=== PATIENT | female | born 1970 | race Caucasian/White ===

== ENCOUNTER 2019-07-31 13:01 | Emergency (ER) | payer OTHER, SELFPAY ==
[2019-07-31 13:01] VITALS: BP 162/74; PULSE 82; RESP 24; TEMP 36.6; O2SAT 93; BMI 28.7
[2019-07-31 13:18] VITALS: BP 152/118; PULSE 86; RESP 17
--- NOTE | 2019-07-31 13:25 | CT_ITS ---
STUDY: CT ABDOMEN AND PELVIS WITH CONTRAST REASON FOR EXAM: Female, 48 years old. Mid abdominal pain with cramping and nausea/vomiting. RADIATION DOSAGE (If Supplied By Facility): CTDIvol = ( 13.61 ) mGy, DLP = ( 678.13 ) mGycm TECHNIQUE: Transaxial images were obtained from the dome of the diaphragm to the symphysis pubis without oral contrast. IV Isovue 300 100CC was administered. Sagittal and coronal images were reconstructed. Individualized dose optimization techniques were used for this CT. COMPARISON: None. FINDINGS: The visualized lung bases are unremarkable. The visualized portions of the heart are within normal limits. Normal liver. Normal gallbladder and extrahepatic biliary system. Normal spleen. Normal pancreas. Normal bilateral adrenal glands. Simple cyst of the right kidney. No solid renal masses or hydronephrosis. Stomach is not well distended. Fluid-filled distal ileum in the right lower abdomen with wall thickening and adjacent mesenteric induration/vascular congestion. Mild amount of free fluid in the dependent right hemipelvis. Normal colon. The appendix is visualized and appears normal. Normal abdominal aorta. Normal inferior vena cava. Normal retroperitoneum. Normal urinary bladder. Small uterine fibroid of the fundus is seen on image 91. Normal abdominal wall. Normal osseous structures. CT/Abdomen/Pelvis W IV Cont ONLY IMPRESSION: 1. Distal ileal wall thickening with perienteric stranding/free fluid and fluid filled bowel suggesting enteritis, infectious or inflammatory causes considered most likely. Bowel diameter measuring up to 2.5 cm. Electronically Signed: Jimbo España MD (Bro[place]) at 15:11 EDT , Service support ,
--- NOTE | 2019-07-31 13:26 | ED.VIS.GI ---
History of Present Illness Chief Complaint: Abd Pain Informant: Patient Limited: - - Acuity/condition - Abdominal Pain/Flank Pain Onset: Hours - 1.5 Timing: Continuous, Waxes and wanes Quality: - - Pain Location: - - Patient points to the periumbilical area/mid abdomen and bilaterally Current Severity: Severe Maximum Severity: Severe - Nausea/Vomiting/Emesis GI Symptom: Nausea, Vomiting - Diarrhea/Melena/Hematochezia GI Symptom: Negative for: Diarrhea, Melena, Hematochezia Associated Symptoms: Negative for: Dysuria, Frequency, Hematuria Narrative: Patient had a normal bowel movement this morning. She has vomited a couple times. She is having severe pain that she has never had before. She is hysterical, screaming in pain, limiting the history initially. Son is with her and confirms she has never been like this. She states she has had a in the past, but no other abdominal surgeries. She states that her back muscles feel sore but does not feel like this pain is radiating into her back. No urinary symptoms this morning. Past Medical History - Allergies and Home Meds Allergies/Adverse Reactions: Allergies Penicillins Allergy (Verified 07/31/19 13:02) Rash Primary Care Physician: Yas Lozano DO [Primary Care Provider] - Surgical History: - - , no other abdominal surgeries Lives: With Family Drugs: None Review of Systems All systems negative except as indicated - Limited but able to perform most as below General: Denies: Chills, Fever ENT: Denies: Rhinorrhea, Sore throat Cardiovascular: Denies: Chest pain, Palpitations Respiratory: Denies: Dyspnea, Cough, Dyspnea on exertion Gastrointestinal: Reports: Abdominal pain, Nausea, Vomiting. Denies: Diarrhea, Melena, Hematochezia Genitourinary: Denies: Dysuria, Hematuria, Frequency Musculoskeletal: Reports: Back pain. Denies: Neck pain, Extremity Pain Skin: Denies: Rash, Wounds Neurological: Denies: Headache, Weakness, Numbness Physical Exam Vital Signs/Narrative: Vital Signs Temp Pulse Resp BP Pulse Ox 07/31/19 13:18 86 17 152/118 H 07/31/19 13:01 97.9 F 82 24 H 162/74 H 93 Inital Vital Signs reviewed: Yes General: Well nourished, Well developed, Acute Distress Head: Normocephalic, Atraumatic Eyes: Perrl, EOMI ENT: Moist mucous membranes, No rhinorrhea Neck: Supple, Nontender Cardiovascular: Regular rate, Regular rhythm, No murmurs Respiratory: No distress, CTA bilaterally, Chest nontender Abdomen: Soft, Nontender, Nondistended, Hypoactive bowel sounds Back: Nontender, Normal Inspection. Negative for: CVA tenderness Extremities: Nontender, No edema Skin: Normal color, No rash, No Trauma Neurological: Alert, Oriented x3, Cranial nerves II-XII grossly intact, Normal Strength, Normal Sensation Psychological: Agitated Diagnostic/Tx/Re-eval Impressions Abdomen/Pelvis CT 07/31/19 13:25 IMPRESSION: 1. Distal ileal wall thickening with perienteric stranding/free fluid and fluid filled bowel suggesting enteritis, infectious or inflammatory causes considered most likely. Bowel diameter measuring up to 2.5 cm. Electronically Signed: Jimbo España MD ([place]) at 15:11 EDT , Service support , 07/31/19 13:25 Abdomen/Pelvis W IV Cont ONLY [CT] Stat Laboratory Results 07/31/19 07/31/19 07/31/19 13:23 13:23 13:23 WBC 9.8 RBC 4.44 Hgb 13.9 Hct 40.7 MCV 91.7 MCH 31.3 MCHC 34.2 RDW Std Deviation 40.1 RDW Coeff of Bello 11.9 Plt Count 272 MPV 9.7 Immature Gran % (Auto) 0.300 Neut % (Auto) 63.3 Lymph % (Auto) 26.4 [place] % (Auto) 7.6 Eos % (Auto) 1.7 Baso % (Auto) 0.7 Absolute Neuts (auto) 6.2 Absolute Lymphs (auto) 2.59 Nucleated RBC % 0 Sodium 140 Potassium 3.0 L Chloride 107 Carbon Dioxide 22.0 Anion Gap 11 BUN 15 Creatinine 0.92 Estim Creat Clear Calc 61.19 Est GFR (MDRD) Af Amer 84 Est GFR (MDRD) Non-Af 69 BUN/Creatinine Ratio 16.4 Glucose 140 H Lactic Acid Calcium 9.0 Total Bilirubin 0.40 AST 17 ALT 20 Alkaline Phosphatase 73 Total Protein 8.0 Albumin 4.0 Globulin 4.0 Albumin/Globulin Ratio 1.0 Lipase 146 Serum , Qual NEGATIVE Urine Color Urine Clarity Urine pH Ur Specific [place] Urine Protein Urine Glucose (UA) Urine Ketones Urine Occult Blood Urine Nitrite Urine Bilirubin Urine Urobilinogen Ur Leukocyte Esterase Urine RBC Urine WBC Ur Squamous Epith Cells Urine Bacteria Urine Mucus 07/31/19 07/31/19 13:33 14:06 WBC RBC Hgb Hct MCV MCH MCHC RDW Std Deviation RDW Coeff of Bello Plt Count MPV Immature Gran % (Auto) Neut % (Auto) Lymph % (Auto) [place] % (Auto) Eos % (Auto) Baso % (Auto) Absolute Neuts (auto) Absolute Lymphs (auto) Nucleated RBC % Sodium Potassium Chloride Carbon Dioxide Anion Gap BUN Creatinine Estim Creat Clear Calc Est GFR (MDRD) Af Amer Est GFR (MDRD) Non-Af BUN/Creatinine Ratio Glucose Lactic Acid 3.6 H Calcium Total Bilirubin AST ALT Alkaline Phosphatase Total Protein Albumin Globulin Albumin/Globulin Ratio Lipase Serum , Qual Urine Color Yellow Urine Clarity Cloudy Urine pH 8.0 Ur Specific [place] 1.010 Urine Protein 30 H Urine Glucose (UA) Normal Urine Ketones 150 H Urine Occult Blood 250 H Urine Nitrite Negative Urine Bilirubin Negative Urine Urobilinogen Normal Ur Leukocyte Esterase 25 H Urine RBC 50-100 SEEN Urine WBC 0 SEEN Ur Squamous Epith Cells 0-5 SEEN Urine Bacteria RARE Urine Mucus RARE - Medical Decision Making Further details obtained after the patient received morphine 10 mg and was able to converse easier without screaming: Patient needed to urinate after drinking a lot of fluids and she was holding it until she got to her destination in her car. She urinate and had some mild mid-abd discomfort afterwards, which worsened over about an hour until the point that it was severe; it was somewhat colicky. So far labs unremarkable, urinalysis does show some trace blood and we are awaiting CT, she was asking for more analgesics so Toradol given as kidney stone is in the differential, even though her pain is bilateral. Blood work unremarkable, urinalysis shows blood but the patient states she is currently finishing up her menstrual cycle. CT shows as above, area of wall thickening in the distal ileum along with some dilatation there focally and perienteric stranding with some free fluid. After Toradol, patient is feeling better still. She still has some residual soreness but nothing like what she did. She is conversing in a comfortable manner. Her pain was across the middle of her abdomen, and with the vomiting, which is nonspecific, the quality of the pain seemed more small bowel in context. There is no sign of any hydronephrosis or urolithiasis, even if she recently passed it she should still have signs of residual hydro-. Therefore I suspect the bowel findings on CT are probably related to her pain, however the reason for this is unknown and will need further work-up if persistent. I discussed with Dr. Zarate who reviewed her CT and the case with me over the phone, and agrees that outpatient follow-up would be reasonable with her, as long as the patient symptoms are controlled. At this time they are, we will monitor her a little longer in the ER and I will give her dicyclomine in addition to the medicine she had, and if she is comfortable going home we will prescribe her Percocet, dicyclomine, and Zofran to use as needed until she can follow-up after the weekend, we also discussed reasons to return. ED Disposition - Plan for ED Patient: Disposition: Home or Assisted Living Diagnosis: Diffuse abdominal pain Instructions: ABDOMINAL PAIN, Unknown Cause, (Female) Prescriptions: Dicyclomine HCl [Bentyl] 20 mg PO Q4H PRN #16 cap PRN Reason: abdominal pain Prescription Printed Oxycodone HCl/Acetaminophen [Percocet 5/325] 1 - 2 tab PO Q4H PRN PRN 3 Days #18 tab PRN Reason: Pain Prescription Printed Ondansetron [Zofran] 8 mg PO Q8H PRN PRN #12 tab PRN Reason: Nausea Prescription Printed Referrals: Yas Lozano DO [Primary Care Provider] - Mavis Zarate MD [STAFF PHYSICIAN] -
[2019-07-31] MEDS: Ondansetron 4 MG/2 ML Vial IV (13:30)
[2019-07-31] MEDS: 0.9% Normal Saline 1,000 ML 1000 ML IV (13:30)
[2019-07-31] MEDS: morphine 10 MG/ML Syringe IV (13:30)
[2019-07-31 13:43] LABS: Absolute Lymphocyte Count 2.59 X10^3/uL (0.83-4.51); Absolute Neutrophil Count 6.2 X10^3/uL (2.0-7.7); Basophil# 0.07 X10^3/uL; Basophil% 0.7 % (0-1); Eosinophil# 0.17 X10^3/uL; Eosinophils% 1.7 % (0-5); Hematocrit 40.7 % (37-47); Hemoglobin 13.9 g/dL (12.0-15.0); Lymphocyte # 2.59 X10^3/ul (4.0); Lymphocyte % 26.4 % (19-41); Mean Corp Hgb Conc 34.2 g/dL (32-36); Mean Corpuscular Hgb 31.3 pg (27.0-32.0); Mean Corpuscular Volume 91.7 fL (81-99); Mean Platelet Vol. 9.7 fl (6.2-12.0); Monocyte# 0.75 X10^3/uL; Monocyte% 7.6 % (0-10); NRBC Flagged by Analyzer 0 % (0-5); Neutrophil % 63.3 % (47-70); Platelet Count 272 K/mm3 (150-450); RBC Distribution Width CV 11.9 % (11.6-14.6); RBC Distribution Width SD 40.1 fl (35.1-43.9); Red Blood Count 4.44 M/mm3 (4.2-5.4); White Blood Count 9.8 K/mm3 (4.4-11.0)
[2019-07-31 13:50] LABS: Internal QC Validated? YES +Cl - CLEAR BKGD; Pregnancy, Serum, hCG Quali. NEGATIVE Negative
[2019-07-31 13:58] LABS: AST(SGOT) 17 U/L (15-37); Alanine Aminotransfer ALT/SGPT 20 U/L (13-56); Alkaline Phosphatase 73 U/L (45-117); Anion Gap 11 (5-15); BUN 15 mg/dL (7-18); BUN/Creat Ratio 16.4 RATIO (10-20); Chloride 107 mmol/L (98-107); Creatinine, Serum 0.92 mg/dL (0.55-1.02); EST Glomerular Filtration Rate 69 mL/min (>60); Est Glom Filt Rate - Afr Amer 84 mL/min (>60); Estimated Creatinine Clearance 61.19 ml/min; Glucose 140 mg/dL (74-106); Lipase 146 U/L (73-393); Sodium Level 140 mmol/L (136-145)
[2019-07-31 14:18] LABS: White Blood Cells 0 SEEN /hpf (0-5)
--- NOTE | 2019-07-31 14:18 | ED.RN ---
LAB WITH CRITICAL VALUE OF 3.[address] VIDAL NOTIFIED AT THIS TIME.
[2019-07-31 14:19] LABS: Lactic Acid 3.6 mmol/L (0.4-2.0)
[2019-07-31 14:20] LABS: Color, Urine Yellow (Yellow); Glucose, Dipstick Normal (Normal); Leukocyte Esterase-Dipstick 25 /ul (Negative); Nitrite-Dipstick Negative (Negative); Occult Blood-Urine 250 /ul (Negative); Protein-Dipstick 30 mg/dl (Negative); Urine Bilirubin Dipstick Negative (Negative); Urine Clarity Cloudy (Clear); Urine Urobilinogen Normal (Normal)
[2019-07-31 14:27] LABS: Ketone-Dipstick 150 mg/dl (Negative)
[2019-07-31 14:29] LABS: Bacteria RARE /hpf (None Seen); Mucous, Urine RARE /hpf (<or=2+); Red Blood Cells-Urine 50-100 SEEN /hpf (0-5); Squamous Epithelial Cells - UA 0-5 SEEN /hpf (5-10)
--- NOTE | 2019-07-31 14:29 | ED.RN ---
LAB WITH CRITICAL OF URINE KETONES OF 150. DR VIDAL NOTIFIED AT THIS TIME.
[2019-07-31] MEDS: Ketorolac 30 MG/ML Syringe IV (14:42)
[2019-07-31 16:03] VITALS: BP 136/85; RESP 18; O2SAT 97
[2019-07-31] MEDS: Dicyclomine 10 MG Capsule 20 MG PO (16:27)
[2019-07-31 17:54] LABS: Reflex Lactate? Y
[2019-07-31] MEDS: Morphine 4 MG/ML Syringe IV (18:31)
[2019-07-31 18:33] VITALS: BP 121/71; PULSE 71; RESP 16; O2SAT 98
[2019-07-31 19:33] VITALS: BP 121/71; RESP 18
== END 2019-07-31 19:34 | disposition home or self-care (01) ==
PROVIDERS: Emergency Provider Emergency Medicine; Family Provider Internal Medicine; PCP Internal Medicine
DX: R10.84 Generalized abdominal pain (principal)
CPT/HCPCS: 74177; 80053; 81001; 83605; 83690; 84703; 85025; 96361; 96374; 96375; 96376; 99285; J7030; Q9967; A4216; J2405

== ENCOUNTER 2019-08-08 12:32 | Inpatient (IN) | payer OTHER, SELFPAY ==
[2019-08-08] VITALS (14 sets, daily range): BP systolic 112–146; BP diastolic 2–98; PULSE 16–119; RESP 14–24; TEMP 36.3–37.6; O2SAT 93–98; BMI 28.8; BMI 28.9
--- NOTE | 2019-08-08 | IMM_PTH ---
PATIENT: PEPE MUNIZ LOC: [facility]3 U#:[id number] AGE/SX: 48/F ROOM: MS306 RE08/08/[address]: Dr. Mavis Zarate MD : 1970 BED: 1 DIS: 08/12/2019 SPEC #: [id number] RECD: 08/10/19 11:25 STATUS: AUDIE REQ #: [id number] HARRIS: 08/08/19 00:[address]: Mavis Zarate DEPT: IMMUNOHISTOCHEMISTRY RECD BY: Tamar eTrry ENTERED: 08/10/19 11:27 SP TYPE: IMMUNO OTHR DR: Dr. Yas Lozano DO Tissues: Lymph node of abdomen, NOS Procedures: BCL-2 (add) CD15 (add) CD20 (add) CD30 (add) CD45 (add) CD5 (add) CD79A (add) CD3 (initial) PHYSICIAN & INSTITUTION [place] [id number] SPECIMEN INFORMATION: Tissue Source: Mesenteric lymph node Clinical Info: Abdominal pain, bloating, constipation Specimen Number: [id number] CPT code: 56241, 88520 x7 METHODOLOGY: Deparaffinized sections of prefer/formalin-fixed tissue or PAP/DQ stained slides are incubated with monoclonal/polyclonal antibodies/oligonucleotide probes. Localization is made via biotin free immunoperoxidase method. Appropriate controls are performed and reacted as expected. Results on target cell population are indicated in the following table: RESULTS: ANTIBODY / CLONE RESULT CD3 (PS1) negative CD5 (SP10) negative CD15 (MMA) negative CD20 (L26) positive, subset, dim CD30 (Cesar-H2) positive CD45 (RP2/18) negative CD79a (11E3) positive, subset, dim BCL-2 (bcl-2/100/D5) negative These tests were developed and their performance characteristics determined by [facility]. They may not have been cleared or approved by the U.S. Food and Drug Administration. The FDA has determined that such clearance or approval is not necessary. The above immunohistochemical/dualISH markers are ordered and reviewed by the Pathologist. INTERPRETATION: Mesenteric lymph node, biopsy: Classical Hodgkin lymphoma, mixed cellularity type. JENISE:bright 08/16/19 The specimen is sent to [facility] for expert opinion and reviewed by Dr. Harding and above diagnosis is rendered. The complete consultation report can be viewed in patient's EMR. Case has been reviewed in consultation with Dr. Ibrahim who concurs with the above diagnosis. 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 Ward's request, reviewed by Dr.?Sarah Christianne CRUZ and the above diagnosis was rendered. In an addendum from [employer], per phone conversation with client, the case was sent to [facility] for consultation with a diagnosis of immunoblast proliferation, not lymphoma. Due to the discrepancy, it may be helpful to have excisional biopsy of lymph node for more definitive diagnosis if clinically indicated. Please see the complete report in the patient's EMR
--- NOTE | 2019-08-08 13:13 | CT_ITS ---
STUDY: CT ABDOMEN AND PELVIS WITH CONTRAST REASON FOR EXAM: Female, 48 years old. Abdominal pain with nausea and vomiting, history of bowel obstruction RADIATION DOSAGE (If Supplied By Facility): CTDIvol = ( 14.15 ) mGy, DLP = ( 758.13 ) mGycm TECHNIQUE: Transaxial images were obtained from the dome of the diaphragm to the symphysis pubis with oral contrast. IV/Oral Isovue 300 100mL was administered. Sagittal and coronal images were reconstructed. Individualized dose optimization techniques were used for this CT. COMPARISON: 07/31/2019 FINDINGS: The visualized lung bases are unremarkable. The visualized portions of the heart are within normal limits. Normal liver. Normal gallbladder and extrahepatic biliary system. Normal spleen. Normal pancreas. Normal bilateral adrenal glands. There is a simple cyst of the right kidney. Normal left kidney. Normal visualized stomach. There are dilated loops of the small intestine with a non-distended colon consistent with a small bowel obstruction. Diameter of small bowel measures up to 4.2 cm (diameter previously measured less than 3 cm). Transition point in the right lower quadrant best seen on coronal image 59. Nondistended colon. The appendix is visualized and appears normal. Normal abdominal aorta. Normal inferior vena cava. Normal retroperitoneum. Normal urinary bladder. Small uterine fibroid is stable. Normal abdominal wall. Normal osseous structures. CT/Abdomen/Pelvis WITH Contrast IMPRESSION: Small bowel obstruction without evidence of pneumoperitoneum. Transition point in the right lower quadrant, distal ileum. Electronically Signed: Jimbo España MD (Brooks) at 15:45 EST , Service support ,
--- NOTE | 2019-08-08 13:15 | ED.VIS.GEN ---
History of Present Illness Chief Complaint: Abd Pain Informant: Patient Onset: Days - 8 Context: Gradual Onset Timing: Continuous Current Severity: Moderate Maximum Severity: Severe Narrative: Is a 48-year-old female with no past medical history presenting with continued abdominal pain, distention, nausea and vomiting. Patient states she was seen in the ER a little over 1 week ago. At that time she was having severe abdominal pain. She required multiple doses of IV morphine for pain control. She was CT which showed a possible partial small bowel obstruction. Patient followed up with Dr. Zarate earlier this week and wanted to continue symptomatic treatment including pain control nausea control. Plan was to repeat a CT tomorrow if patient continued to have symptoms. Patient states she cannot keep any medication down. She cannot keep any liquids down. He states she has not really eaten anything since this all started 8 days ago. She is drinking minimal water. She notes yesterday she had vomit that looked like espresso but states she did not drink anything dark. Today she threw up but it was clear. She still feels very distended and bloated. She has had 2 small bowel movements that have been mostly water. She is been taking enemas at home with no significant bowel movement. She has a history of but no other abdominal surgeries. She denies any change in her symptoms or new symptoms. She denies any other complaints at this time. Past Medical History - Allergies and Home Meds Allergies/Adverse Reactions: Allergies Penicillins Allergy (Verified 07/31/19 13:02) Rash Past Medical History: None Surgical History: - - , no other abdominal surgeries Lives: With Family Smoking Status: Never smoker Review of Systems All systems negative except as indicated Gastrointestinal: Reports: Abdominal pain, Nausea, Vomiting, Constipation Physical Exam Vital Signs/Narrative: Vital Signs Temp Pulse Resp BP Pulse Ox 08/08/19 12:33 98.3 F 49 L 16 131/2 H 98 Inital Vital Signs reviewed: Yes General: Well nourished, Well developed, No Acute Distress Head: Normocephalic, Atraumatic Eyes: Perrl, EOMI ENT: Moist mucous membranes, No rhinorrhea Neck: Supple, Nontender Cardiovascular: Regular rate, Regular rhythm, No murmurs Respiratory: No distress, CTA bilaterally, Chest nontender Abdomen: Soft, Nondistended, Normal bowel sounds, Tender - Diffuse, Hyperactive bowel sounds, - - Mildly distended abdomen, no fluid wave. Negative for: No masses, Guarding, Rebound tenderness Back: Nontender, Normal Inspection. Negative for: CVA tenderness Extremities: Nontender, No edema Skin: Normal color, No rash Neurological: Alert, Oriented x3, Cranial nerves II-XII grossly intact, Normal Strength, Normal Sensation Psychological: Normal affect, Normal Mood Diagnostic/Tx/Re-eval Clinical Impression(s) from Imaging Studies Abdomen/Pelvis CT 08/08/19 13:13 IMPRESSION: Small bowel obstruction without evidence of pneumoperitoneum. Transition point in the right lower quadrant, distal ileum. Electronically Signed: Jimbo España MD (Brooks) at 15:45 EST , Service support , Laboratory Data 08/08/19 08/08/19 08/08/19 12:55 12:55 12:55 WBC Cancelled 9.1 Corrected WBC Cancelled RBC Cancelled 4.41 Hgb Cancelled 13.7 Hct Cancelled 40.8 MCV Cancelled 92.5 MCH Cancelled 31.1 MCHC Cancelled 33.6 RDW Std Deviation Cancelled 40.5 RDW Coeff of Bello Cancelled 11.9 Plt Count Cancelled 358 MPV Cancelled 9.5 Immature Gran % (Auto) Cancelled Neut % (Auto) Cancelled Not Reportable Lymph % (Auto) Cancelled [place] % (Auto) Cancelled Eos % (Auto) Cancelled Baso % (Auto) Cancelled Absolute Neuts (auto) Cancelled 6.3 Absolute Lymphs (auto) Cancelled 1.64 Total Counted Cancelled 100 Neutrophils % (Manual) Cancelled 61 Band Neutrophils % Cancelled 8 H Lymphocytes % (Manual) Cancelled 18 L Monocytes % (Manual) Cancelled 9 Eosinophils % (Manual) Cancelled 1 Basophils % (Manual) Cancelled Metamyelocytes % Cancelled Myelocytes % Cancelled 3 H Promyelocytes % Cancelled Blast Cells % Cancelled Plasma Cell % (Manual) Cancelled Other Cells % Cancelled Nucleated RBC % Cancelled 0 Nucleated RBCs/100 WBC Cancelled Differential Comment Cancelled Diff Path Review Cancelled May foll Hypersegmented Neuts Cancelled Atypical Lymphocytes Cancelled Reactive Lymphocytes Cancelled Smudge Cells Cancelled Toxic Granulation Cancelled Toxic Vacuolation Cancelled Dohle Bodies Cancelled Og Rods Cancelled Platelet Estimate Cancelled ADEQUATE Plt Morphology Comment Cancelled RBC Morphology Cancelled NORM C+C Polychromasia Cancelled Hypochromasia Cancelled Poikilocytosis Cancelled Basophilic Stippling Cancelled Anisocytosis Cancelled Microcytosis Cancelled Macrocytosis Cancelled Spherocytes Cancelled Sickle Cells Cancelled Target Cells Cancelled Tear Drop Cells Cancelled Ovalocytes Cancelled Stomatocytes Cancelled [place] Bodies Cancelled Hope Cells Cancelled Bite Cells Cancelled Crenated Cell Cancelled Acanthocytes (Spur) Cancelled Rouleaux Cancelled Schistocytes Cancelled Sodium 138 Potassium 2.9 L Chloride 99 Carbon Dioxide 26.0 Anion Gap 13 BUN 22 H Creatinine 0.70 Estim Creat Clear Calc 80.42 Est GFR (MDRD) Af Amer 113 Est GFR (MDRD) Non-Af 94 BUN/Creatinine Ratio 31.2 H Glucose 109 H Lactic Acid Calcium 8.6 Total Bilirubin 0.40 Direct Bilirubin 0.12 AST 15 ALT 22 Alkaline Phosphatase 73 Total Protein 7.7 Albumin 3.1 L Globulin 4.6 H Lipase 171 Urine Color Urine Clarity Urine pH Ur Specific [place] Urine Protein Urine Glucose (UA) Urine Ketones Urine Occult Blood Urine Nitrite Urine Bilirubin Urine Urobilinogen Ur Leukocyte Esterase Urine RBC Urine WBC Ur Squamous Epith Cells Urine Bacteria Urine Mucus Urine Test 08/08/19 08/08/19 08/08/19 13:35 13:35 13:35 WBC Corrected WBC RBC Hgb Hct MCV MCH MCHC RDW Std Deviation RDW Coeff of Bello Plt Count MPV Immature Gran % (Auto) Neut % (Auto) Lymph % (Auto) [place] % (Auto) Eos % (Auto) Baso % (Auto) Absolute Neuts (auto) Absolute Lymphs (auto) Total Counted Neutrophils % (Manual) Band Neutrophils % Lymphocytes % (Manual) Monocytes % (Manual) Eosinophils % (Manual) Basophils % (Manual) Metamyelocytes % Myelocytes % Promyelocytes % Blast Cells % Plasma Cell % (Manual) Other Cells % Nucleated RBC % Nucleated RBCs/100 WBC Differential Comment Diff Path Review Hypersegmented Neuts Atypical Lymphocytes Reactive Lymphocytes Smudge Cells Toxic Granulation Toxic Vacuolation Dohle Bodies Og Rods Platelet Estimate Plt Morphology Comment RBC Morphology Polychromasia Hypochromasia Poikilocytosis Basophilic Stippling Anisocytosis Microcytosis Macrocytosis Spherocytes Sickle Cells Target Cells Tear Drop Cells Ovalocytes Stomatocytes [place] Bodies Aden Cells Bite Cells Crenated Cell Acanthocytes (Spur) Rouleaux Schistocytes Sodium Potassium Chloride Carbon Dioxide Anion Gap BUN Creatinine Estim Creat Clear Calc Est GFR (MDRD) Af Amer Est GFR (MDRD) Non-Af BUN/Creatinine Ratio Glucose Lactic Acid 1.1 Calcium Total Bilirubin Direct Bilirubin AST ALT Alkaline Phosphatase Total Protein Albumin Globulin Lipase Urine Color Yellow Urine Clarity Clear Urine pH 6.0 Ur Specific [place] 1.020 Urine Protein 100 H Urine Glucose (UA) Normal Urine Ketones 150 H Urine Occult Blood 250 H Urine Nitrite Negative Urine Bilirubin 1 H Urine Urobilinogen 1 H Ur Leukocyte Esterase 25 H Urine RBC 10-25 SEEN Urine WBC 0 SEEN Ur Squamous Epith Cells 0 SEEN Urine Bacteria 0 SEEN Urine Mucus 0 SEEN Urine Test Negative - Medical Decision Making Patient is evaluated for continued nausea, vomiting and inability to take p.o. She was diagnosed with a partial small bowel obstruction versus ileus last week but her symptoms have persisted. She is been following with Dr. Zarate outpatient. Patient clinically appears dehydrated. She is given IV fluids. CT with IV and p.o. contrast is obtained which does show an acute small bowel obstruction with transition point. Patient's lactate is normal. She is hypokalemic and potassium replacement IV is given. Attempt is made for NG tube in the ED however it is inadvertently placed in the long and then removed. Decision is made by surgeon to take her to the OR and NG tube will be placed at that time. Patient is agreeable with this plan. She is hemodynamically stable in the emergency room. ED Disposition - Plan for ED Patient: Disposition: Acute Care Hospital [facility] Diagnosis: SBO (small bowel obstruction), Hypokalemia
[2019-08-08] MEDS: Morphine 4 MG/ML Syringe IV ×2 (13:29→21:56)
[2019-08-08] MEDS: 0.9% Normal Saline 1,000 ML 1000 ML IV (13:29)
[2019-08-08] MEDS: Ondansetron 4 MG/2 ML Vial IV (13:29)
[2019-08-08 13:47] LABS: Bacteria 0 SEEN /hpf (None Seen); Mucous, Urine 0 SEEN /hpf (<or=2+); Squamous Epithelial Cells - UA 0 SEEN /hpf (5-10); White Blood Cells 0 SEEN /hpf (0-5)
[2019-08-08 13:51] LABS: Color, Urine Yellow (Yellow); Glucose, Dipstick Normal (Normal); Leukocyte Esterase-Dipstick 25 /ul (Negative); Nitrite-Dipstick Negative (Negative); Occult Blood-Urine 250 /ul (Negative); Protein-Dipstick 100 mg/dl (Negative); Urine Bilirubin Dipstick 1 mg/dL (Negative); Urine Clarity Clear (Clear); Urine Urobilinogen 1 mg/dl (Normal)
[2019-08-08 13:52] LABS: Internal QC Validated? YES +Cl - CLEAR BKGD; Ketone-Dipstick 150 mg/dl (Negative); Pregnancy, Urine Negative Negative
[2019-08-08 14:01] LABS: AST(SGOT) 15 U/L (15-37); Alanine Aminotransfer ALT/SGPT 22 U/L (13-56); Albumin, Serum 3.1 g/dL (3.2-5.0); Alkaline Phosphatase 73 U/L (45-117); Anion Gap 13 (5-15); BUN 22 mg/dL (7-18); BUN/Creat Ratio 31.2 RATIO (10-20); Bilirubin, Direct 0.12 mg/dL (0.00-0.30); Calcium,Total 8.6 mg/dL (8.5-10.1); Chloride 99 mmol/L (98-107); EST Glomerular Filtration Rate 94 mL/min (>60); Est Glom Filt Rate - Afr Amer 113 mL/min (>60); Estimated Creatinine Clearance 80.42 ml/min; Globulin 4.6 g/dL (2.2-4.2); Glucose 109 mg/dL (74-106); Lipase 171 U/L (73-393); Potassium 2.9 mmol/L (3.5-5.1); Protein, Total 7.7 g/dL (6.4-8.2); Sodium Level 138 mmol/L (136-145)
[2019-08-08 14:06] LABS: Red Blood Cells-Urine 10-25 SEEN /hpf (0-5)
[2019-08-08 14:13] LABS: Differential Indicated MANUAL DIFF; Hematocrit 40.8 % (37-47); Hemoglobin 13.7 g/dL (12.0-15.0); Mean Corp Hgb Conc 33.6 g/dL (32-36); Mean Corpuscular Hgb 31.1 pg (27.0-32.0); Mean Corpuscular Volume 92.5 fL (81-99); Mean Platelet Vol. 9.5 fl (6.2-12.0); POSITIVE MORPHOLOGY YES; Platelet Count 358 K/mm3 (150-450); RBC Distribution Width CV 11.9 % (11.6-14.6); RBC Distribution Width SD 40.5 fl (35.1-43.9); Red Blood Count 4.41 M/mm3 (4.2-5.4); White Blood Count 9.1 K/mm3 (4.4-11.0)
[2019-08-08 14:15] LABS: Neutrophil-Band 8 % (0-5); Neutrophil-Segmented 61 % (47-70); Total Cells Counted 100 (MANUAL DIFF)
[2019-08-08 14:16] LABS: Eosinophil 1 % (0-5); Lymphocyte 18 % (19-41); Monocyte 9 % (0-10); Myelocyte 3 (0-0); Platelet Estimate ADEQUATE (ADEQ); Red Cell Morphology NORM C+C NORMAL (NORM C&C)
[2019-08-08 14:17] LABS: Lactic Acid 1.1 mmol/L (0.4-2.0)
[2019-08-08 14:17] LABS: Absolute Lymphocyte Count 1.64 X10^3/uL (0.83-4.51); Absolute Neutrophil Count 6.3 X10^3/uL (2.0-7.7)
[2019-08-08 14:18] LABS: NRBC Flagged by Analyzer 0 % (0-5)
--- NOTE | 2019-08-08 15:04 | HP.PCM_ITS ---
History and Physical Date of Admission: 08/08/19 Mercedes Muniz 1970 ? ? REFERRING PHYSICIAN: [facility], [place] [facility] ? CHIEF COMPLAINT: Consult (Consult Abd pain) ? HPI: The patient is a 48 year old female presents with complaint of abdominal pain The following is from a previous note when I had seen patient last week: She states that it began on Friday morning - patient states that she had to urinate but had to hold it, when she was finally able to do so, she had difficulty initiating the stream, then after voiding, then she felt crampy lower abdominal pain. She had accompanying symptoms of nausea and emesis. She also felt bloated. The pain became so severe that she presented to [facility] ED on 07/31/19. She states that she was screaming in pain and that it is completely out of character for her. She had essentially normal labs - normal WBC and Hct and LFTs, and afebrile and hemodynamically stable. CT scan obtained - fluid filled distal ileum in the right lower abdomen with wall thickening and adjacent mesenteric induration/vascular congestion. Mild amount of free fluid in the dependent right hemipelvis...appendix...normal She received morphine IV in ED and this greatly improved her pain, she was able to be discharged to home on bentyl, ibuprofen, and oxycodone. She has been taking the oxycodone. She was still in pain at home, sometimes lying in bed all day, she states that she is normally very active. Lying on her left side helps. She did vomit yesterday, but none today. Her last bowel movement was on Friday prior to presentation to ED. She has continuous pain, but it waxes and wanes and is not as severe as when she went to ED. She states that she feels bloated. Denies inflammatory bowel disease such as ulcerative colitis or Crohn's disease in family. Denies colon cancer in family. She states that she can't eat, she has been trying to drink water. Her only previous abdominal surgery was a csection, but she states that she had to have her bowels eviscerated due to complications with . She presents again to [facility] ED. Worsening symptoms - intractable nausea/emesis. WBC was normal. Pain is severe, barely controlled with morphine 4 mg. Lactic acid is normal. Patient is afebrile. CT scan reveals bowel obstruction. ? PAST MEDICAL HISTORY ? Skin cancer ? ? basal cell ? PAST SURGICAL HISTORY ? DELIVERY ONLY ? ? ? x2, tubal ligation at time of ? KNEE SURGERY HX Left 2008 ? TUBAL LIGATION, ? Current Outpatient Medications: oxyCODONE-acetaminophen (PERCOCET) 5-325 mg tablet Take 1 tablet by mouth every 8 hours as needed. dicyclomine (BENTYL) 10 mg capsule Take 10 mg by mouth before meals and at bedtime. ondansetron orally disintegrating (ZOFRAN ODT) 4 mg disintegrating tablet Take 4 mg by mouth every 8 hours as needed. MULTIVIT &MINERALS/FERROUS FUM (MULTI VITAMIN ORAL) Take by mouth. CALCIUM CARBONATE/VITAMIN D3 (CALCIUM + D ORAL) Take by mouth. B COMPLEX WITH VITAMIN C (VITAMIN B COMPLEX-C ORAL) Take by mouth. DOCOSAHEXANOIC ACID/EPA (FISH OIL ORAL) Take by mouth. ondansetron (ZOFRAN) 4 mg tablet Take 1 tablet by mouth every 8 hours as needed for up to 7 days. alpha tocopheryl acetate 400 unit capsule Take 400 Units by mouth once daily. FERROUS SULFATE, DRIED (IRON, DRIED, ORAL) Take by mouth. ? ? ALLERGIES: Penicillins ? PERSONAL HISTORY: Social History Socioeconomic History Marital status: Spouse name: Abhay Number of children: 2 Years of education: Not on file Highest education level: Not on file Occupational History Employer: [employer] Social Needs Financial resource strain: Not on file Food insecurity: Worry: Not on file Inability: Not on file Transportation needs: Medical: Not on file Non-medical: Not on file Tobacco Use Smoking status: Never Smoker Smokeless tobacco: Never Used Substance and Sexual Activity Alcohol use: No Drug use: No Sexual activity: Never Lifestyle Physical activity: Days per week: Not on file Minutes per session: Not on file Stress: Not on file Relationships Social connections: Talks on phone: Not on file Gets together: Not on file Attends baptism service: Not on file Active member of club or organization: Not on file Attends meetings of clubs or organizations: Not on file Relationship status: Not on file Intimate partner violence: Fear of current or ex partner: Not on file Emotionally abused: Not on file Physically abused: Not on file Forced sexual activity: Not on file Other Topics Concerns: Not on file Social History Narrative Not on file ? FAMILY HISTORY ? Breast Cancer Mother ? ? Diabetes Mother ? ? other (Endometrial cancer) Maternal Aunt ? ? Cancer Maternal Aunt ? ? Cancer Paternal Aunt ? ? Diabetes Maternal Aunt ? ? Diabetes Paternal Aunt ? ? ? REVIEW OF SYSTEMS: General: The patient notes fatigue, denies weight loss, denies weight gain, denies feeling hot, and denies feelings of cold. Eyes: The patient denies glaucoma, denies eye injury/surgery, wears glasses or contacts. Ear/Nose/Throat: The patient denies allergies, denies hayfever, denies ear infections, and denies bloody noses. Cardiovascular: The patient denies chest pain, denies heart disease, denies high blood pressure,denies cardiac stent, denies prior heart attack, denies irregular heart beat, denies high cholesterol, denies poor circulation, denies heart failure, other cardiac issues, denies claudication, denies cold feet, denies peripheral arterial stent. Respiratory: The patient denies tuberculosis, denies pneumonia, denies frequent cough, denies pulmonary embolism, denies shortness of breath, and denies coughing up blood. Gastrointestinal: The patient denies difficulty swallowing, denies acid reflux, denies ulcers, denies vomiting, denies jaundice/hepatitis, denies gallbladder problems, denies black or tarry stools, denies hemorrhoids, denies bleeding from rectum, denies diverticulitis, denies constipation, denies diarrhea, denies loss of stool control, and denies hernias. Kidney/Bladder: The patient NOTES kidney stones, denies urine infections, and denies bloody urine. Skin: The patient denies a history of skin cancer, denies bleeding/changing moles, and denies a history of skin rash. Neurologic: The patient denies a history of epilepsy/convulsions, denies headaches, denies head/spinal injuries, and denies stroke/TIA. Psychiatric: The patient denies psychiatric medications, denies depression, and denies voices, denies substance abuse. Endocrine: The patient denies thyroid disorders, denies diabetes, and denies hormonal problems. Hematologic: The patient denies a history of bruising, denies bleeding, and denies anemia, denies blood clots. Infections: The patient denies a history of measles and mumps, denies rheumatic fever, and denies sexually transmitted diseases. Musculoskeletal: The patient denies back pain/injury, denies back problems, denies sciatica, NOTES knee/foot trouble, denies arthritis, or denies gout. ? PHYSICAL EXAMINATION: General: The patient is 48 year old female, well nourished, well hydrated in no acute distress. The patient is oriented to time, place, and person. VITALS: Blood pressure 118/60, pulse 91, temperature 36.8 ?C (98.3 ?F), height 160 cm (5' 3), weight 73.8 kg (162 lb 9.6 oz), SpO2 100 %. Body mass index is 28.8 kg/m?. Head ? Normocephalic. EOM intact with sclera clear and no icterus noted. Wearing glasses. Mouth with mucus membranes moist. Neck - supple with no jugular venous distention noted. Trachea is midline. No masses noted. Lungs ? clear to auscultation. Normal breath sounds. No rales/rhonchi/wheezing noted. No labored breathing noted, such as retractions. No cough heard. Heart ? normal S1 and S2 auscultated. No rubs/clicks/murmurs noted. Regular rate. Abdomen ? soft with generalized tenderness but no peritoneal signs. Normal bowel sounds. No distention noted. Extremities ? no calf tenderness noted. No pitting edema noted. Skin ? normal skin integrity. Neurological ? gait normal, no focal deficits noted. Psych ? calm and appropriatete LABORATORY VALUES: As Noted RADIOLOGIC STUDIES: As Noted ? ? IMPRESSION: generalized abdominal pain, abdominal bloating, constipation - CT scan findings of SBO ? PLAN: I have discussed the above with the patient Will proceed to OR for exploratory laparotomy and lysis of adhesions, possible bowel resection. Nurses in ED could not get NG tube down, therefore patient cannot be decompressed at this time. She will be admitted after surgery to [facility]. I have counseled the patient as to the risks of the procedure, including but not limited to: infection, bleeding, injury to any blood vessels/nerves, scar tissue, injury to any intrabdominal organs, injury to kidney/ureters, injury to bowel/bladder, intraabdominal abscess/bleeding, incisional hernia, wound infections, complications of anesthesia, etc. the patient understands. I have answered all questions to the patient?s satisfaction and the patient has no further questions.
[2019-08-08] MEDS: Potassium Chloride 10mEq/100mL 10 MEQ/100 ML IV.SOLN. 100 MEQ IV BOLUS ×4 (15:42→20:11)
[2019-08-08] MEDS: Lidocaine 4% 5 ML Ampul 2 ML INHALATION (16:09)
--- NOTE | 2019-08-08 16:30 | RAD_ITS ---
STUDY: X-RAY - ABDOMEN/PELVIS REASON FOR EXAM: Female, 48 years old. NG tube placement, removed following x-ray TECHNIQUE: Single AP view of the abdomen / pelvis. COMPARISON: None. FINDINGS: Enteric tube is seen coiled overlying the upper thorax. Tip of the tube projects over the left mainstem bronchus. Gaseous dilation of small bowel noted. RAD/Abdomen Single View (Portable) IMPRESSION: Enteric tube likely within left mainstem bronchus. Removed by the clinical service immediately following x-ray according to technologist notes. Electronically Signed: Jimbo España MD (Brooks) at 16:43 EST , Service support ,
--- NOTE | 2019-08-08 16:41 | ED.RN ---
attempted to place ng in r nares, pt did not tolerate well. xray to confirm placement, placement was not in stomach. tube removed.
--- NOTE | 2019-08-08 17:30 | LYMN_PTH ---
PATIENT: PEPE MUNIZ LOC: MS3 U#:[id number] AGE/SX: 48/F ROOM: MS306 RE08/08/[address]: Dr. Mavis Zarate MD : 1970 BED: 1 DIS: 08/12/2019 SPEC #: [id number] RECD: 08/09/19 07:25 STATUS: AUDIE REGabbie #: [id number] HARRIS: 08/08/19 17:[address]: Mavis Zarate DEPT: SURGICAL PATHOLOGY RECD BY: Gladys Martinez ENTERED: 08/09/19 08:47 SP TYPE: LYMPH NODE OTHR DR: Dr. 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 See microscopic description and comment. SJ:rg 08/16/19 COMMENT This case is sent to [facility] for expert opinion and reviewed by Dr. Harding and above diagnosis is rendered. The complete consultation report can be viewed in patient's EMR. Immunohistochemistry ([id number]) and additional immunohistochemical stains performed at [facility] supports the above diagnosis. Case has been reviewed in consultation with Dr. Ibrahim who concurs with the above diagnosis. IDC:AM MICROSCOPIC DESCRIPTION Slides are reviewed. The specimen consists of lymph node tissue. The jacquie architecture is effaced by atypical lymphoid infiltrate, composed of Hodgkin cells/Leeroy Arabella (RS) cells in a background of mixed inflammatory cells. IHCs reveal the RS cells are positive for LOPEZ-1, Oct-2 (dim), CD30, PAX-5 (dim), CD20 (subset), MUM1, negative for CD45. GROSS DESCRIPTION Received in fixative is one container labeled with the patient's name and designated mesenteric lymph node. The specimen consists of multiple irregular fragments of beltre-pink soft tissue that in aggregate measure 1 x 0.5 x 0.1 cm. The specimen is totally submitted in one cassette. / SJ:rg 08/09/19 TC:0 CPT: 21157 ADDENDUM ADDENDUM ADDENDUM ADDENDUM ADDENDUM ADDENDUM ADDENDUM ADDENDUM ADDENDUM ADDENDUM ADDENDUM ADDENDUM ADDENDUM ADDENDUM 09/16/2019 09:28 ADDENDUM 09/16/2019 09:28 ADDENDUM 09/16/2019 09:28 ADDENDUM 09/16/2019 09:28 ADDENDUM 09/16/2019 09:28 Mesenteric lymph node, biopsy: Reactive lymphadenitis with paracortical expansion and immunoblastic proliferation, see comment This case was sent to [facility] for expert consultation per Dr. Ward's request, reviewed by Dr.?Sarah Christianne CRUZ and the above diagnosis was rendered. In an addendum from [facility], per phone conversation with client, the case was sent to [facility] for consultation with a diagnosis of immunoblast proliferation, not lymphoma. Due to the discrepancy, it may be helpful to have excisional biopsy of lymph node for more definitive diagnosis if clinically indicated. Please see the complete report in the patient's EMR
--- NOTE | 2019-08-08 18:29 | OP.PCM_ITS ---
Report of Operation Date of Procedure: 08/08/19 Pre-Operative Diagnosis: small bowel obstruction Post-Operative Diagnosis: small bowel obstruction due to adhesions, mesenteric adenopathy Surgery/Procedure Performed:: exploratory laparotomy, lysis of adhesions, mesenteric lymph node biopsy Description of Surgical Findings:: adhesions of small bowel to pelvic area, area of narrowing at distal terminal ileum - probably due to chronic adhesions - but passage of intestinal contents to cecum ok, enlarged lymph nodes - biopsy of mesenteric lymph nodes - may be reactive due to chronic obstruction, areas of small bowel induration - probable chronic obstructive signs senior engineering technician: Kerri Chan Type of Anesthesia:: General Anesthesiologist: Aspen Bradford Specimen's removed: mesenteric lymph node Estimated Blood Loss (mL): < 10 ml Fluids Replaced: 1000 ml RL Description of Procedure: After informed consent was obtained, the patient was brought to the Operating Room. Appropriate time out protocol was followed. She was then placed in the supine position. The patient was then placed under general endotracheal anesthesia. The abdomen was then prepped with a sterile surgical skin preparation. Sterile surgical drapes were placed. This skin and subcutaneous tissues were then widely infiltrated with the local anesthetic. A skin incision was then made with a 10 blade scalpel from the periumbilical area extending down the midline inferiorly about 10-12 cm. It was carried down to the subcutaneous tissues with electrocautery. The fascia was then divided and the intraabdominal cavity was entered. There was slightly cloudy peritoneal fluid. The small dorothy l was grossly dilated, but no evidence of gangrene. Examination of the pelvic region revealed omental adhesions to the pelvis with small bowel twisted within this, findings consistent with a closed loop obstruction. These adhesive bands were taken down using electrocautery thus freeing the bowel. The small bowel was then carefully examined from the ligament of Treitz to the ileocecal valve. Of note, there was enlarged mesenteric lymph nodes in the distal ileum. This may be due to chronic obstructive symptoms. One of the lymph nodes was excised from the mesentery and forwarded to pathology for analysis. There was evidence of chronic obstructive symptoms with indurated wall of the small bowel and at the sites of the previous adhesive stricture. There was a site at the very distal terminal ileum, just short of the ileocecal valve, however, bowel contents were able to be passed through this area and into the cecum. The omentum was placed over the small bowel in its proper anatomical position after the intraabdominal cavity was vigorously irrigated with normal saline. All irrigant was aspirated out. There was no evidence of bleeding or bile/fecal leakage. The fascia was maximus pproximated with running looped #1 PDS suture. The wound was irrigated with diluted betadyne solution. The skin incision was reapproximated with skin ivan. Sterile dressing was applied. The patient was then extubated. She was brought to the Recovery Room in stable condition. - Complications none noted - Admit VTE Documentation VTE Present on Admission: Yes VTE Mechan Device Prophylaxis: SCD's
[2019-08-08] MEDS: Bupivacaine Mpf 0.5% 30 ML VIAL (18:30)
[2019-08-08] MEDS: Lactated Ringers 1,000 ML 150 ML IV ×3 (18:34→19:22)
[2019-08-08] MEDS: Ketorolac 30 MG/ML Syringe IV (19:01)
[2019-08-09] MEDS: Ketorolac 30 MG/ML Syringe IV ×5 (00:31→23:21)
[2019-08-09] MEDS: Lactated Ringers 1,000 ML 150 ML IV ×4 (00:31→20:01)
[2019-08-09] MEDS: Morphine 4 MG/ML Syringe IV ×6 (01:11→19:07)
[2019-08-09 04:09] VITALS: BP 112/56; PULSE 85; RESP 18; TEMP 36.9; O2SAT 98
[2019-08-09 05:56] LABS: Potassium 3.3 mmol/L (3.5-5.1)
[2019-08-09] MEDS: Potassium Chloride 10mEq/100mL 10 MEQ/100 ML IV.SOLN. 100 MEQ IV BOLUS ×2 (06:45→08:05)
[2019-08-09 08:12] VITALS: BP 108/58; PULSE 95; RESP 18; TEMP 36.8; O2SAT 94
--- NOTE | 2019-08-09 10:06 | CASEMGMT ---
RN CM Assessment Introduced role of RN CM to patient.? Patient is alert, oriented and able?to participate in RN CM Assessment, sitting up in [place] with NGT placed, agreed to assessment at this time. ?Care providers, pharmacy, and demographics verified. Presentation: Continued Abd Pain, distention, n/v-seen in ER a little over 1 week ago Admit Dx: Abd Pain, Possible Bowel Obstruction Re-Admit: No Barriers/Issues: None, has a good family support system that can help if needed. PCP: Yas Lozano Specialists: None Preferred Pharmacy: [facility] Insurance: [facility] Rx Benefit: Yes? LNOK: None on file at [facility] LW/HPOA: Son Rafael Muniz Living Arrangements:?Lives with her two kids in a 2 story home. Bedroom on . 1 step to enter home. ADL?s: Independent with ambulation and ADLs Transportation: Patient drives DME: None HHC: None SNF: None Goal: Home and does not think will have any needs at this time, aware CM will continue to follow for any emerging needs. Denies any questions, concerns, or issues with DC planning at this time. DC PLAN: Home with no anticipated needs identified at this time. HUY Cox
--- NOTE | 2019-08-09 11:33 | PCM.PN.SRG ---
Patient Problems: Active and Suspected Problems SBO (small bowel obstruction) (Acute) Hypokalemia (Acute) Subjective: patient feeling OK, tolerating NG tube no flatus, still feels bloated - Physical Exam Vitals/I&O's: Vital Signs Temp Pulse Resp BP Pulse Ox 98.2 F 95 18 108/58 L 94 08/09/19 08:12 08/09/19 08:12 08/09/19 08:12 08/09/19 08:12 08/09/19 08:12 Oxygen Delivery Method Room Air Weight: 73.936 kg Body Mass Index (BMI) 28.8 Intake and Output for Last 24 Hours 08/08/19 08/08/19 08/09/19 00:59 23:59 23:59 Intake Total 2057.5 / 2057.5 Output Total 800 / 800 Balance 1257.5 / 1257.5 General: Alert, Oriented x3 Oral: Moist Mucosa Neck: Supple Lungs: Normal air movement Abdomen: Soft, Hypoactive Bowel Sounds, - - dressings intact Laboratory Results 08/08/19 12:55: WBC Cancelled, Corrected WBC Cancelled, RBC Cancelled, Hgb Cancelled, Hct Cancelled, MCV Cancelled, MCH Cancelled, MCHC Cancelled, RDW Std Deviation Cancelled, RDW Coeff of Bello Cancelled, Plt Count Cancelled, MPV Cancelled, Immature Gran % (Auto) Cancelled, Neut % (Auto) Cancelled, Lymph % (Auto) Cancelled, [place] % (Auto) Cancelled, Eos % (Auto) Cancelled, Baso % (Auto) Cancelled, Absolute Neuts (auto) Cancelled, Absolute Lymphs (auto) Cancelled, Total Counted Cancelled, Neutrophils % (Manual) Cancelled, Band Neutrophils % Cancelled, Lymphocytes % (Manual) Cancelled, Monocytes % (Manual) Cancelled, Eosinophils % (Manual) Cancelled, Basophils % (Manual) Cancelled, Metamyelocytes % Cancelled, Myelocytes % Cancelled, Promyelocytes % Cancelled, Blast Cells % Cancelled, Plasma Cell % (Manual) Cancelled, Other Cells % Cancelled, Nucleated RBC % Cancelled, Nucleated RBCs/100 WBC Cancelled, Differential Comment Cancelled, Diff Path Review Cancelled, Hypersegmented Neuts Cancelled, Atypical Lymphocytes Cancelled, Reactive Lymphocytes Cancelled, Smudge Cells Cancelled, Toxic Granulation Cancelled, Toxic Vacuolation Cancelled, Dohle Bodies Cancelled, Og Rods Cancelled, Platelet Estimate Cancelled, Plt Morphology Comment Cancelled, RBC Morphology Cancelled, Polychromasia Cancelled, Hypochromasia Cancelled, Poikilocytosis Cancelled, Basophilic Stippling Cancelled, Anisocytosis Cancelled, Microcytosis Cancelled, Macrocytosis Cancelled, Spherocytes Cancelled, Sickle Cells Cancelled, Target Cells Cancelled, Tear Drop Cells Cancelled, Ovalocytes Cancelled, Stomatocytes Cancelled, [place] Bodies Cancelled, [place] Cells Cancelled, Bite Cells Cancelled, Crenated Cell Cancelled, Acanthocytes (Spur) Cancelled, Rouleaux Cancelled, Schistocytes Cancelled 08/08/19 12:55: Sodium 138, Potassium 2.9 L, Chloride 99, Carbon Dioxide 26.0, Anion Gap 13, BUN 22 H, Creatinine 0.70, Estim Creat Clear Calc 80.42, Est GFR (MDRD) Af Amer 113, Est GFR (MDRD) Non-Af 94, BUN/Creatinine Ratio 31.2 H, Glucose 109 H, Calcium 8.6, Total Bilirubin 0.40, Direct Bilirubin 0.12, AST 15, ALT 22, Alkaline Phosphatase 73, Total Protein 7.7, Albumin 3.1 L, Globulin 4.6 H, Lipase 171 08/08/19 12:55: WBC 9.1, RBC 4.41, Hgb 13.7, Hct 40.8, MCV 92.5, MCH 31.1, MCHC 33.6, RDW Std Deviation 40.5, RDW Coeff of Bello 11.9, Plt Count 358, MPV 9.5, Neut % (Auto) Not Reportable, Absolute Neuts (auto) 6.3, Absolute Lymphs (auto) 1.64, Total Counted 100, Neutrophils % (Manual) 61, Band Neutrophils % 8 H, Lymphocytes % (Manual) 18 L, Monocytes % (Manual) 9, Eosinophils % (Manual) 1, Myelocytes % 3 H, Nucleated RBC % 0, Diff Path Review February, Platelet Estimate ADEQUATE, RBC Morphology NORM C+C 08/08/19 13:35: Lactic Acid 1.1 08/08/19 13:35: Urine Test Negative 08/08/19 13:35: Urine Color Yellow, Urine Clarity Clear, Urine pH 6.0, Ur Specific [place] 1.020, Urine Protein 100 H, Urine Glucose (UA) Normal, Urine Ketones 150 H, Urine Occult Blood 250 H, Urine Nitrite Negative, Urine Bilirubin 1 H, Urine Urobilinogen 1 H, Ur Leukocyte Esterase 25 H, Urine RBC 10-25 SEEN, Urine WBC 0 SEEN, Ur Squamous Epith Cells 0 SEEN, Urine Bacteria 0 SEEN, Urine Mucus 0 SEEN 08/09/19 05:04: Potassium 3.3 L Current Medications Pantoprazole Sodium 40 mg/ (Sodium Chloride) 110 mls @ 330 mls/hr IV Q12 [facility] Last Infusion: 08/09/19 06:03 Dose: Infused Documented by: Lactated Ringer's () 1,000 mls @ 150 mls/hr IV .[id number] [facility] Last Admin: 08/09/19 06:45 Dose: 150 mls/hr Documented by: Sodium Chloride () 250 mls @ 15 mls/hr IV .[id number] PRN PRN Reason: Saline Flush Ketorolac Tromethamine (Toradol) 30 mg IV Q6 [facility] Stop: 08/13/19 18:35 Last Admin: 08/09/19 06:24 Dose: 30 mg Documented by: Morphine Sulfate () 4 mg IV Q1H PRN PRN PRN Reason: Pain Score 6-10/10 Last Admin: 08/09/19 09:54 Dose: 4 mg Documented by: Ondansetron HCl (Zofran) 4 mg IV Q8 PRN PRN Reason: NAUSEA/VOMITING Sodium Chloride () 10 - 40 ml IV UD PRN PRN Reason: SALINE FLUSH Medical Necessity - Tobacco Use Smoking Status: Never smoker Assessment/Plan All Active Problems SBO (small bowel obstruction) (Acute) Hypokalemia (Acute) Impression: POD#1 s/p ex lap, lysis of adhesions Plan: continue present therapy encourage ambulation and incentive spirometry
[2019-08-09 12:05] LABS: Pathologist Review Reviewed
[2019-08-09 12:38] VITALS: BP 124/64; PULSE 100; RESP 18; TEMP 36.7; O2SAT 92
[2019-08-09 19:09] VITALS: BP 151/71; PULSE 104; RESP 18; TEMP 36.9; O2SAT 96
[2019-08-09] MEDS: Ondansetron 4 MG/2 ML Vial IV (19:48)
[2019-08-09] MEDS: 0.9% Saline Lock 10 ML Syringe IV ×2 (19:48→23:21)
[2019-08-09 19:51] VITALS: PULSE 104
[2019-08-09 23:17] VITALS: BP 116/66; PULSE 100; RESP 18; TEMP 37; O2SAT 95
[2019-08-10] MEDS: Morphine 4 MG/ML Syringe IV ×2 (01:13→04:26)
[2019-08-10] MEDS: 0.9% Saline Lock 10 ML Syringe IV ×6 (01:13→23:01)
[2019-08-10] MEDS: Lactated Ringers 1,000 ML 150 ML IV ×3 (02:37→16:26)
[2019-08-10 04:21] VITALS: BP 126/70; PULSE 103; RESP 18; TEMP 37.3; O2SAT 95
[2019-08-10] MEDS: Ketorolac 30 MG/ML Syringe IV ×4 (05:44→23:01)
[2019-08-10 07:27] LABS: Potassium 2.8 mmol/L (3.5-5.1)
--- NOTE | 2019-08-10 09:29 | NURSING ---
pt assisted self back to bed from recliner. denies pain needs. NG back to [facility]WS.
[2019-08-10 09:56] VITALS: BP 120/66; PULSE 87; RESP 16; TEMP 37.5; O2SAT 95
[2019-08-10] MEDS: Potassium Chloride 10mEq/100mL 10 MEQ/100 ML IV.SOLN. 100 MEQ IV BOLUS ×6 (10:43→21:58)
[2019-08-10] MEDS: Morphine 2 MG/ML Syringe IV ×2 (11:07→16:26)
[2019-08-10 14:26] VITALS: BP 140/76; PULSE 86; RESP 18; TEMP 37.1; O2SAT 94
--- NOTE | 2019-08-10 17:17 | PCM.PN.SRG ---
Patient Problems: Active and Suspected Problems SBO (small bowel obstruction) (Acute) Hypokalemia (Acute) Subjective: Patient states that she feels rumbling in her abdomen, moving around well - Physical Exam Vitals/I&O's: Vital Signs Temp Pulse Resp BP Pulse Ox 98.8 F 86 18 140/76 H 94 08/10/19 14:26 08/10/19 14:26 08/10/19 14:26 08/10/19 14:26 08/10/19 14:26 Oxygen Flow Rate (L/min) 1 Oxygen Delivery Method Room Air Weight: 73.936 kg Body Mass Index (BMI) 28.8 Intake and Output for Last 24 Hours 08/08/19 08/09/19 08/10/19 23:59 23:59 23:59 Intake Total 5222.5 / 5222.5 3458.34 / 3458.34 Output Total 2800 / 2800 850 / 850 Balance 2422.5 / 2422.5 2608.34 / 2608.34 General: Alert, Oriented x3 Abdomen: Soft, Hypoactive Bowel Sounds, - - dressing with some seepage, but not outside dressing rectal - no air in vault - rectal stimulation done Laboratory Results 08/10/19 06:35: Potassium 2.8 L Current Medications Pantoprazole Sodium 40 mg/ (Sodium Chloride) 110 mls @ 330 mls/hr IV Q12 [facility] Last Infusion: 08/10/19 11:42 Dose: Infused Documented by: Lactated Ringer's () 1,000 mls @ 150 mls/hr IV .[id number] [facility] Last Admin: 08/10/19 16:26 Dose: 150 mls/hr Documented by: Sodium Chloride () 250 mls @ 15 mls/hr IV .[id number] PRN PRN Reason: Saline Flush Ketorolac Tromethamine (Toradol) 30 mg IV Q6 [facility] Stop: 08/13/19 18:35 Last Admin: 08/10/19 13:41 Dose: 30 mg Documented by: Morphine Sulfate () 2 - 4 mg IV Q1H PRN PRN PRN Reason: Pain Score 4-10/10 Morphine Sulfate () 2 - 4 mg IV Q1H PRN PRN PRN Reason: Pain Score 4-10/10 Last Admin: 08/10/19 16:26 Dose: 2 mg Documented by: Ondansetron HCl (Zofran) 4 mg IV Q8 PRN PRN Reason: NAUSEA/VOMITING Last Admin: 08/09/19 19:48 Dose: 4 mg Documented by: Sodium Chloride () 10 - 40 ml IV UD PRN PRN Reason: SALINE FLUSH Last Admin: 08/10/19 13:42 Dose: 10 ml Documented by: Medical Necessity - Tobacco Use Smoking Status: Never smoker Assessment/Plan All Active Problems SBO (small bowel obstruction) (Acute) Hypokalemia (Acute) Impression: POD#2 s/p ex lap, lysis of adhesions Plan: continue present therapy encourage ambulation and incentive spirometry
[2019-08-10 18:55] LABS: Potassium 3.2 mmol/L (3.5-5.1)
[2019-08-10 20:37] VITALS: BP 143/76; PULSE 95; RESP 18; TEMP 37.1; O2SAT 94
[2019-08-11] MEDS: Lactated Ringers 1,000 ML 150 ML IV ×2 (01:14→08:16)
--- NOTE | 2019-08-11 02:00 | NURSING ---
pt called out and reported to FIELD SERVICE ANALYST that pt passed flatus
[2019-08-11 02:05] VITALS: BP 125/74; PULSE 91; RESP 16; TEMP 36.7; O2SAT 94
[2019-08-11] MEDS: 0.9% Saline Lock 10 ML Syringe IV (05:08)
[2019-08-11] MEDS: Ketorolac 30 MG/ML Syringe IV ×2 (05:08→11:59)
[2019-08-11 05:38] LABS: Magnesium 2.3 mg/dL (1.6-2.6); Potassium 3.1 mmol/L (3.5-5.1)
[2019-08-11] MEDS: Potassium Chloride 10mEq/100mL 10 MEQ/100 ML IV.SOLN. 100 MEQ IV BOLUS ×2 (07:00→08:16)
[2019-08-11 07:58] VITALS: BP 144/73; PULSE 83; RESP 16; TEMP 36.8; O2SAT 97
--- NOTE | 2019-08-11 09:37 | PN.SURG_ITS ---
Patient Problems: Active and Suspected Problems SBO (small bowel obstruction) (Acute) Hypokalemia (Acute) Subjective: Patient awake and resting comfortably in bed at time of visit. Notes feeling much better today. States she has passed a large amount of flatus x 5 and her abdominal pain is greatly improved since that time. Notes she is hungry. - Physical Exam Vitals/I&O's: Vital Signs Temp Pulse Resp BP Pulse Ox 98.2 F 83 16 144/73 H 97 08/11/19 07:58 08/11/19 07:58 08/11/19 07:58 08/11/19 07:58 08/11/19 07:58 Oxygen Flow Rate (L/min) 1 Oxygen Delivery Method Room Air Weight: 163 lb 0.016 oz Body Mass Index (BMI) 28.8 Intake and Output for Last 24 Hours 08/09/19 08/10/19 08/11/19 23:59 23:59 23:59 Intake Total 5222.5 / 5222.5 5013.34 / 5013.34 1490.5 / 1490.5 Output Total 2800 / 2800 2050 / 2050 650 / 650 Balance 2422.5 / 2422.5 2963.34 / 2963.34 840.5 / 840.5 General: Alert, Oriented x3, Cooperative, No apparent distress, Well developed, Well nourished HEENT: Atraumatic, - - NG tube in place, clamped Neck: Supple Lungs: Clear to auscultation Cardiovascular: Regular rate, Regular Rhythm Abdomen: Bowel Sounds Present, Soft, - - mild TTP without rebound or guarding, dressing c/d/i Psych/Mental Status: Normal Affect Laboratory Results 08/10/19 18:23: Potassium 3.2 L 08/11/19 05:00: Potassium 3.1 L, Magnesium 2.3 Current Medications Pantoprazole Sodium 40 mg/ (Sodium Chloride) 110 mls @ 330 mls/hr IV Q12 [facility] Last Infusion: 08/10/19 23:21 Dose: Infused Documented by: Lactated Ringer's () 1,000 mls @ 150 mls/hr IV .[id number] [facility] Last Admin: 08/11/19 08:16 Dose: 150 mls/hr Documented by: Sodium Chloride () 250 mls @ 15 mls/hr IV .[id number] PRN PRN Reason: Saline Flush Ketorolac Tromethamine (Toradol) 30 mg IV Q6 [facility] Stop: 08/13/19 18:35 Last Admin: 08/11/19 05:08 Dose: 30 mg Documented by: Morphine Sulfate () 2 - 4 mg IV Q1H PRN PRN PRN Reason: Pain Score 4-10/10 Morphine Sulfate () 2 - 4 mg IV Q1H PRN PRN PRN Reason: Pain Score 4-10/10 Last Admin: 08/10/19 16:26 Dose: 2 mg Documented by: Ondansetron HCl (Zofran) 4 mg IV Q8 PRN PRN Reason: NAUSEA/VOMITING Last Admin: 08/09/19 19:48 Dose: 4 mg Documented by: Sodium Chloride () 10 - 40 ml IV UD PRN PRN Reason: SALINE FLUSH Last Admin: 08/11/19 05:08 Dose: 10 ml Documented by: Medical Necessity - Tobacco Use Smoking Status: Never smoker Assessment/Plan All Active Problems SBO (small bowel obstruction) (Acute) Hypokalemia (Acute) I have reviewed my findings with Dr. Zarate, who also participated in development of the following plan POD#3 s/p expl lap with lysis of adhesions Patient doing well and resuming normal bowel function Remove NG tube and start on clear liquids
--- NOTE | 2019-08-11 11:42 | NURSING ---
Pt had large formed, soft BM. NG removed at 1100 per order- pt tolerated well.
[2019-08-11 14:00] VITALS: BP 100/53; PULSE 98; RESP 16; TEMP 36.8; O2SAT 96
[2019-08-11] MEDS: Ketorolac 10 MG Tablet PO (19:43)
[2019-08-11 21:00] VITALS: BP 135/77; PULSE 95; RESP 18; TEMP 37.8; O2SAT 98
[2019-08-11] MEDS: Acetaminophen 500 MG Tablet PO (21:05)
[2019-08-11] MEDS: Temazepam 15 MG Capsule 30 MG PO (22:09)
[2019-08-12 05:00] VITALS: BP 143/85; PULSE 97; RESP 18; TEMP 36.8; O2SAT 97
[2019-08-12] MEDS: Ketorolac 10 MG Tablet PO (05:36)
[2019-08-12] MEDS: Acetaminophen 500 MG Tablet PO (05:36)
[2019-08-12 06:10] LABS: Potassium 3.1 mmol/L (3.5-5.1)
--- NOTE | 2019-08-12 08:11 | PCM.PN.SRG ---
Patient Problems: Active and Suspected Problems SBO (small bowel obstruction) (Acute) Hypokalemia (Acute) Subjective: patient feeling well, having BM and flatus - Physical Exam Vitals/I&O's: Vital Signs Temp Pulse Resp BP Pulse Ox 98.2 F 97 18 143/85 H 97 08/12/19 05:00 08/12/19 05:00 08/12/19 05:00 08/12/19 05:00 08/12/19 05:00 Oxygen Flow Rate (L/min) 1 Oxygen Delivery Method Room Air Weight: 73.936 kg Body Mass Index (BMI) 28.8 Intake and Output for Last 24 Hours 08/10/19 08/11/19 08/12/19 23:59 23:59 23:59 Intake Total 5013.34 / 5013.34 3418.33 / 3918.33 900 / 900 Output Total 2049 / 2049 1050 / 1050 Balance 2963.34 / 2963.34 2368.33 / 2868.33 900 / 900 General: Alert, Oriented x3 Oral: Moist Mucosa Neck: Supple Lungs: Normal air movement Abdomen: Bowel Sounds Present, Soft, - - wound is dry/intact Laboratory Results 08/12/19 05:20: Potassium 3.1 L Current Medications Acetaminophen (Tylenol) 500 mg PO Q4H PRN PRN PRN Reason: Pain Score 1-10/10 Last Admin: 08/12/19 05:36 Dose: 500 mg Documented by: Sodium Chloride () 250 mls @ 15 mls/hr IV .[id number] PRN PRN Reason: Saline Flush Ketorolac Tromethamine (Toradol) 10 mg PO Q6H PRN PRN PRN Reason: Pain or Fever Stop: 08/16/19 17:27 Last Admin: 08/12/19 05:36 Dose: 10 mg Documented by: Morphine Sulfate () 2 - 4 mg IV Q1H PRN PRN PRN Reason: Pain Score 4-10/10 Morphine Sulfate () 2 - 4 mg IV Q1H PRN PRN PRN Reason: Pain Score 4-10/10 Last Admin: 08/10/19 16:26 Dose: 2 mg Documented by: Ondansetron HCl (Zofran) 4 mg IV Q8 PRN PRN Reason: NAUSEA/VOMITING Last Admin: 08/09/19 19:48 Dose: 4 mg Documented by: Sodium Chloride () 10 - 40 ml IV UD PRN PRN Reason: SALINE FLUSH Last Admin: 08/11/19 05:08 Dose: 10 ml Documented by: Temazepam (Restoril) 30 mg PO QHS PRN PRN Reason: insomnia Last Admin: 08/11/19 22:09 Dose: 30 mg Documented by: Medical Necessity - Tobacco Use Smoking Status: Never smoker Assessment/Plan All Active Problems SBO (small bowel obstruction) (Acute) Hypokalemia (Acute) Impression: POD#3 s/p ex lap, lysis of adhesions Plan: continue present therapy encourage ambulation and incentive spirometry d/c to home
--- NOTE | 2019-08-12 08:17 | DCINST_ITS ---
Discharge Diet: No Restrictions - avoid carbonated beverages drink lots of fluids Discharge Activity: Return to Normal Activity Lifting Restrictions: no lifting greater than 20# Call your doctor if your incision/area has: Continuous Slow Oozing, Foul Smelling Discharge Call your doctor if you observe: Fever of 101 or Higher Additional Dressing/Incision Instructions:: May shower. Do not soak - no tub baths/swimming Allergies/Adverse Reactions: Allergies Penicillins Allergy (Verified 07/31/19 13:02) Rash Medications to take at Discharge Dicyclomine HCl [Bentyl] 20 mg PO Q4H PRN #16 cap 07/31/19 Ondansetron [Zofran] 4 mg PO Q8H PRN PRN 08/08/19 Oxycodone HCl/Acetaminophen [Oxycodone-Acetaminophen 5-325] 1 - 2 tab PO Q4H PRN 08/08/19 Ketorolac [Toradol] 10 mg PO Q6H PRN #20 tab 08/12/19 The following prescriptions were given: Ketorolac [Toradol] 10 mg PO Q6H PRN #20 tab PRN Reason: Pain Score 4-10/10 Prescription Printed Primary Care Physician: Yas Lozano DO [Primary Care Provider] - Test Results: Test results from this visit will be discussed in further detail at your follow- up appointment, if applicable. Please Follow Up With: Mavis Zarate MD - call When: to be seen next Friday, please call for time, thank you
[2019-08-12 10:17] VITALS: BP 130/90; PULSE 98; RESP 16; TEMP 37.1; O2SAT 98
== END 2019-08-12 10:53 | disposition home or self-care (01) | DRG 337 ==
LOC: ED 13:12 → MS3 17:04
PROVIDERS: Admitting Provider Surgery; Emergency Provider Emergency Medicine; Family Provider Internal Medicine; PCP Internal Medicine; Referring Provider Surgery; Visit Provider Surgery
PROC: 0DN80ZZ Release Small Intestine, Open Approach (ICD-10-PCS; CPT 49000; principal; 2019-08-08 17:30)
DX: K56.52 Intestinal adhesions [bands] with complete obstruction (principal); E87.6 Hypokalemia; R59.0 Localized enlarged lymph nodes
CPT/HCPCS: 36415; 74018; 74177; 80048; 80076; 81001; 81025; 83605; 83690; 83735; 84132; 85025; 88305; 88341; 88342; 94640; 99284; J7030; J7120; Q9967; A4216; J2405

== ENCOUNTER → 2022-12-18 | Outpatient (CLI) | payer BC, SELFPAY ==
--- NOTE | 2022-12-18 12:19 | ECHOD_ITS ---
Reason For Study: HTN Procedure This was a 2D Doppler, Color Flow transthoracic echocardiogram. Exam performed in department. Left Ventricle Normal LV size. Left ventricular systolic function is normal. The estimated ejection fraction is 60 %. Stage 1 diastolic dysfunction. No regional wall motion abnormalities noted. Right Ventricle Normal RV size. Normal systolic function. Atria Normal left atrium. Normal right atrium. Mitral Valve Normal mitral valve. Mild (1+) eccentric mitral valve insufficiency. Tricuspid Valve Normal tricuspid valve. Mild tricuspid valve insufficiency. Pulmonary artery systolic pressure is 28 mmHg. Aortic Valve Normal aortic valve. Trisinus/trileaflet aortic valve. Pulmonic Valve Normal pulmonic valve. Mild (1+) pulmonic valve insufficiency. Great Vessels Normal aortic root. The pulmonary artery is normal size. Normal inferior vena cava. Pericardium/Pleural No pericardial effusion. MMode/2D Measurements & Calculations LVIDd: 4.1 cm IVSd: 0.87 cm Ao root diam: 2.9 cm LVIDs: 2.5 cm LVPWd: 1.0 cm RVDd: 2.8 cm FS: 37.2 % LAV(MOD-bp): 24.4 ml LVAd ap4: 25.1 cm2 SV(MOD-sp4): 43.9 ml LAV(MOD-bp) Indexed: 13.9 ml/m2 LVLd ap4: 7.7 cm LAV(MOD-sp2): 26.3 ml EDV(MOD-sp4): 69.4 ml LAV(MOD-sp4): 21.0 ml EDV(sp4-el): 69.9 ml LVAs ap4: 13.1 cm2 LVLs ap4: 6.1 cm ESV(MOD-sp4): 25.5 ml ESV(sp4-el): 23.8 ml EF(MOD-sp4): 63.3 % EF(sp4-el): 65.9 % SV(sp4-el): 46.0 ml LA A4 area: 10.7 cm2 LA dimension(2D): 2.9 cm RA A4 area: 8.1 cm2 Time Measurements MV dec time: 0.23 sec Doppler Measurements & Calculations MV E max axel: 49.3 cm/sec Lat Peak E' Axel: 10.2 cm/sec Med Peak E' Axel: 5.9 cm/sec MV A max axel: 63.6 cm/sec E/E' lat: 4.8 E/E' med: 8.3 MV E/A: 0.77 Ao V2 max: 156.8 cm/sec LV V1 max: 115.5 cm/sec MV dec slope: 218.1 cm/sec2 Ao max P.8 mmHg LV V1 max P.3 mmHg Ao V2 mean: 120.2 cm/sec Ao mean P.2 mmHg Ao V2 VTI: 28.8 cm PA V2 max: 115.2 cm/sec TR max axel: 243.7 cm/sec TR max P.8 mmHg ECHO/Echo Complete Interpretation Summary Normal LV size. Left ventricular systolic function is normal. The estimated ejection fraction is 60 %. Stage 1 diastolic dysfunction. Pulmonary artery systolic pressure is 28 mmHg. Structurally normal valves. Ordering Physician: Martín Lockett Referring Physician: Yas Lozano Performed By: Keely Woods, RDCS, RVT
--- NOTE | 2022-12-18 16:49 | STRESSREP ---
Stress Test Report Exercise stress test. 52-year-old lady with a history of hypertension Stress protocol: Resting EKG demonstrates normal sinus rhythm with a rate of 70 bpm resting blood pressure is 134/80 mmHg. The patient exercised according to the regular [facility] protocol for a total duration of 11 minutes attaining a maximum heart rate of 179 bpm which was 107% of maximum predicted heart rate; the maximum workload was 13.4 metabolic equivalents. At rest there were no ST or T wave changes noted to suggest ischemia and at peak exercise upsloping ST changes only were noted which did not meet the criteria for ischemia. No clinical angina was noted the test was terminated due to the target heart rate being achieved/fatigue. The peak blood pressure was 162/74 mmHg. Rate-pressure product was 28,200. Conclusion: Stress test with no EKG criteria for ischemia at a high workload. Excellent functional aerobic capacity.
== END | disposition home or self-care (01) ==
LOC: CVS 12:17
PROVIDERS: PCP Internal Medicine; Referring Provider Internal Medicine Cardiovascular Disease; Visit Provider Internal Medicine Cardiovascular Disease
DX: I10 Essential (primary) hypertension (principal)
CPT/HCPCS: 93017; 93306

== ENCOUNTER → 2023-09-15 | Outpatient (CLI) | payer BC, SELFPAY ==
--- NOTE | 2023-09-15 16:27 | MRI_ITS ---
EXAM: MR LEFT UPPER EXTREMITY WITHOUT INTRAVENOUS CONTRAST CLINICAL INDICATION: adhesive capsulitis of l shoulder TECHNIQUE: Multiplanar and multisequence MR images of the left shoulder/upper extremity without intravenous contrast. COMPARISON: No relevant prior studies available. FINDINGS: BONES/JOINTS: Moderate hypertrophic degenerative changes of the acromioclavicular joint with mild mass effect on the underlying soft tissues. Type II acromion with curved undersurface. No subacromial enthesophyte or os acromiale. Small bone island involving the glenoid neck. No fracture. No joint effusion. Rotator cuff: No tear. Labrum: Absence of the anterior superior labrum. Thickened cordlike middle glenohumeral ligament. 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 Intact long head of the biceps tendon. MUSCLES: Unremarkable. No edema or myositis. OTHER SOFT TISSUES: [id number] amount of fluid in the subacromial subdeltoid bursa is compatible with bursitis. MRI/Upper Ext Joint Only(Routine) IMPRESSION: 1. Subacromial/subdeltoid bursitis. 2. Findings are concerning for posterior superior/superior labral tearing. Electronically Signed: Phill Logan MD at 23:50 EST ,
== END | disposition home or self-care (01) ==
LOC: MRI 15:54
PROVIDERS: PCP Internal Medicine; Referring Provider Orthopaedic Surgery; Visit Provider Orthopaedic Surgery
DX: M75.02 Adhesive capsulitis of left shoulder (principal)
CPT/HCPCS: 73221

== ENCOUNTER → 2024-11-03 | Outpatient (CLI) | payer BC, SELFPAY | END | disposition home or self-care (01) | LOC: PSN 11:59 | PROVIDERS: PCP Internal Medicine; Referring Provider Nurse Practitioner Family; Visit Provider Nurse Practitioner Family | DX: R00.2 Palpitations (principal) | CPT/HCPCS: 93225; 93226 ==

== ENCOUNTER → 2024-11-04 | Outpatient (CLI) | payer BC, SELFPAY ==
--- NOTE | 2024-11-04 12:45 | ECHOD_ITS ---
Reason For Study: Palpitations Procedure This was a 2D Doppler, Color Flow transthoracic echocardiogram. Exam performed in department. Left Ventricle Normal LV size. Left ventricular systolic function is normal. The left ventricular ejection fraction is 55 %. Stage 1 diastolic dysfunction. No regional wall motion abnormalities noted. Right Ventricle Normal RV size. Normal systolic function. Atria Normal left atrium. Normal right atrium. Mitral Valve Normal mitral valve. Tricuspid Valve Normal tricuspid valve. Aortic Valve Trisinus/trileaflet aortic valve. Pulmonic Valve Normal pulmonic valve. Great Vessels Normal aortic root. The pulmonary artery is normal size. Inferior vena cava collapse with respiration. Pericardium/Pleural No pericardial effusion. MMode/2D Measurements & Calculations LVIDd: 4.3 cm IVSd: 0.96 cm LVOT diam: 1.9 cm LVIDs: 2.8 cm LVPWd: 1.0 cm LVOT area: 3.0 cm2 RVDd: 3.5 cm FS: 35.4 % _ Ao root diam: 2.9 cm LAV(MOD-bp): 36.2 ml LVAd ap4: 25.6 cm2 LAV(MOD-bp) Indexed: 20.4 ml/m2 LVLd ap4: 8.1 cm LAV(MOD-sp2): 31.1 ml EDV(MOD- sp4): 69.6 ml LAV(MOD-sp4): 34.6 ml EDV(sp4- el): 68.5 ml LVAs ap4: 15.5 cm2 LVLs ap4: 6.6 cm ESV(MOD- sp4): 30.8 ml ESV(sp4- el): 30.6 ml EF(MOD- sp4): 55.8 % EF(sp4- el): 55.4 % _ SV(MOD-sp4): 38.8 ml SV(sp4-el): 37.9 ml LA A4 area: 15.3 cm2 SI(MOD-sp4): 21.9 ml/m2 _ LA dimension(2D): 2.4 cm RA A4 area: 12.5 cm2 Time Measurements MV dec time: 0.25 sec Doppler Measurements & Calculations MV E max axel: 56.2 cm/sec Lat Peak E' Axel: 16.0 cm/sec Med Peak E' Axel: 7.2 cm/sec MV A max axel: 60.0 cm/sec E/E' lat: 3.5 E/E' med: 7.8 MV E/A: 0.94 _ MV V2 max: 68.0 cm/sec Ao V2 max: 125.0 cm/sec MV max P.9 mmHg MV dec slope: 232.9 cm/sec2 Ao max P.2 mmHg MV V2 mean: 51.3 cm/sec Ao V2 mean: 85.5 cm/sec MV mean P.1 mmHg Ao mean P.4 mmHg MV V2 VTI: 26.0 cm Ao V2 VTI: 25.9 cm AV (velocity ratio): 0.97 MVA(VTI): 2.9 cm2 IDALMIS(I,D): 2.9 cm2 IDALMIS(V,D): 2.9 cm2 _ LV V1 max: 121.3 cm/sec SV(LVOT): 74.4 ml PA V2 max: 115.3 cm/sec LV V1 max P.9 mmHg PA V2 mean: 78.8 cm/sec LV V1 mean P.2 mmHg LV V1 mean: 83.8 cm/sec LV V1 VTI: 25.1 cm ECHO/Echo Complete Interpretation Summary Normal LV size. Left ventricular systolic function is normal. The left ventricular ejection fraction is 55 %. Stage 1 diastolic dysfunction. Structurally normal valves. Ordering Physician: Tavares Woods Referring Physician: Tavares Woods Performed By: Emerald Hagen RCS
[2024-11-04 15:00] LABS: Absolute Lymphocyte Count 2.47 X10^3/uL (0.83-4.51); Absolute Neutrophil Count 4.5 X10^3/uL (2.0-7.7); Basophil# 0.05 X10^3/uL; Basophil% 0.6 % (0-1); Eosinophil# 0.21 X10^3/uL; Eosinophils% 2.7 % (0-5); Hematocrit 39.2 % (37-47); Hemoglobin 13.3 g/dL (12.0-15.0); Lymphocyte # 2.47 X10^3/ul (0.83-4.51); Lymphocyte % 31.2 % (19-41); Mean Corp Hgb Conc 33.9 g/dL (32-36); Mean Corpuscular Hgb 30.9 pg (27.0-32.0); Mean Corpuscular Volume 91.2 fL (81-99); Mean Platelet Vol. 10.1 fl (6.2-12.0); Monocyte# 0.63 X10^3/uL; NRBC Flagged by Analyzer 0 % (0-5); Neutrophil # 4.53 X10^3/uL (2.7-7.7); Neutrophil % 57.2 % (47-70); Platelet Count 263 K/mm3 (150-450); RBC Distribution Width CV 12.2 % (11.6-14.6); RBC Distribution Width SD 40.3 fl (35.1-43.9); White Blood Count 7.9 K/mm3 (4.4-11.0)
[2024-11-04 15:51] LABS: Anion Gap 8 (5-15); BUN 12 mg/dL (7-18); BUN/Creat Ratio 15.8 RATIO (10-20); Calcium,Total 9.2 mg/dL (8.5-10.1); Chloride 103 mmol/L (98-107); Creatinine, Serum 0.76 mg/dL (0.55-1.02); EST Glomerular Filtration Rate 84 mL/min (>60); Est Glom Filt Rate - Afr Amer 102 mL/min (>60); Glucose 80 mg/dL (74-106); Magnesium 2.3 mg/dL (1.6-2.6); Potassium 3.2 mmol/L (3.5-5.1); Sodium Level 141 mmol/L (136-145); T4 Total, Thyroxin 8.2 ug/dL (4.8-13.9); Thyroid Stim Hormone (TSH) 0.734 uIU/mL (0.358-3.740)
== END | disposition home or self-care (01) ==
PROVIDERS: PCP Internal Medicine; Referring Provider Nurse Practitioner Family; Visit Provider Nurse Practitioner Family
DX: R00.2 Palpitations (principal); E87.6 Hypokalemia; I10 Essential (primary) hypertension; R01.1 Cardiac murmur, unspecified
CPT/HCPCS: 36415; 80048; 83735; 84436; 84443; 85025; 93306